=== PATIENT | male | born 1975 | race Caucasian/White ===

== ENCOUNTER 2017-11-05 09:17 | Emergency (ER) | payer SELFPAY ==
--- NOTE | 2017-11-05 09:19 | ER Report ---
History and Physical Time Seen By MD: 09:18 HPI/ROS CHIEF COMPLAINT: Toothache HISTORY OF PRESENT ILLNESS: Patient with complaint of left lower toothache. This began approximately 2 days ago. Patient is visiting from [place]. Patient does have a dentist in [place] but will be staying [place] for the next few weeks. Eyes any fevers or chills. Allergies: Coded Allergies: No Known Drug Allergies (Unverified , 11/05/17) Home Meds Active Scripts Penicillin V Potassium 500 Mg Tab (PENICILLIN V POTASSIUM 500 MG TAB) 500 Mg Tablet, 500 MG PO QID, #28 TAB 0 Refills Prov:MAO RUBALCAVA MD 11/05/17 Ondansetron Hcl (ZOFRAN) 4 Mg Tablet, 4 MG PO Q8H for Nausea, #15 TAB 0 Refills Prov:MAO RUBALCAVA MD 11/05/17 Oxycodone Hcl/Acetaminophen (PERCOCET 5-325 MG TABLET) 1 Each Tablet, 1 EACH PO Q6H for PAIN, #15 TAB 0 Refills Prov:MAO RUBALCAVA MD 11/05/17 Past Medical/Surgical History Noncontributory ports this chief complaint Constitutional Vital Sign - Last 24 Hours 11/05/17 09:21 Temp 98.9 Pulse 73 Resp 16 B/P (MAP) 131/82 Pulse Ox 96 O2 Delivery Room Air Physical Exam General Appearance: Alert, no distress. Eyes: Pupils equal and round no pallor or injection. ENT, Mouth: Ears: Tympanic membranes are normal. Nose: No bleeding. Mouth: Mucous membranes are moist. Patient with dental caries to the left 2nd premolar on the mandible. No evidence of abscess Throat: No erythema or exudates there is no tonsillar hypertrophy and uvula is midline. Musculoskeletal: Neck is supple non tender, no adenopathy. Skin: Warm and dry, no rashes. [ Medical Decision Making ED Course/Re-evaluation ED Course 11/05/2017 9:51:12 am plan at this time will be oral pain medication along with antibiotics and we'll refer to dental. Decision to Disposition Date: Nov 05, 2017 Decision to Disposition Time: 09:51 Depart Departure Latest Vital Signs Vital Signs Date Time Temp Pulse Resp B/P (MAP) Pulse Ox O2 Delivery O2 Flow Rate FiO2 11/05/17 09:21 98.9 73 16 131/82 96 Room Air Impression: Primary Impression: Toothache Condition: Improved Disposition: HOME OR SELF-CARE New Scripts Penicillin V Potassium 500 Mg Tab (PENICILLIN V POTASSIUM 500 MG TAB) 500 Mg Tablet 500 MG PO QID, #28 TAB 0 Refills Prov: MAO RUBALCAVA MD 11/05/17 Ondansetron Hcl (ZOFRAN) 4 Mg Tablet 4 MG PO Q8H for Nausea, #15 TAB 0 Refills Prov: MAO RUBALCAVA MD 11/05/17 Oxycodone Hcl/Acetaminophen (PERCOCET 5-325 MG TABLET) 1 Each Tablet 1 EACH PO Q6H for PAIN, #15 TAB 0 Refills Prov: MAO RUBALCAVA MD 11/05/17 Patient Instructions: Toothache (ED) Additional Instructions: [employer] [address] [place] [address] Call tomorrow 11/06 to schedule follow up appointment MAO RUBALCAVA MD Nov 05, 2017 09:19
[2017-11-05] MEDS ORDERED: ONDANSETRON 4 MG ODT TABDP SL ONE (09:45)
[2017-11-05] MEDS ORDERED: PENICILLIN VK 250 MG TAB PO SCH (09:50)
[2017-11-05] MEDS ORDERED: ONDANSETRON 4 MG TAB ONE (09:51)
[2017-11-05] MEDS ORDERED: PENI-24 PO (09:52)
[2017-11-05] MEDS ORDERED: OXYC-865 PO (09:52)
[2017-11-05] MEDS ORDERED: ONDA4TAB97 PO (09:52)
[2017-11-05] MEDS ORDERED: ONDANSETRON 4 MG ODT TH SL ONE (10:10)
[2017-11-05 10:15] VITALS: BP 116/62
== END 2017-11-05 10:20 | disposition home or self-care (01) ==
LOC: ER 09:18
DX: K08.89 Other specified disorders of teeth and supporting structures (principal)
CPT/HCPCS: 99283; S0119